=== PATIENT | male | born 1975 | race Caucasian/White ===

== ENCOUNTER 2018-01-23 10:50 | Inpatient (IN) ==
[2018-01-23] MEDS ORDERED: Aluminum/Magnesium/Simethacone Susp 30 ML UDC PO PRN (15:19)
[2018-01-23] MEDS: Senna/Docusate Sodium 8.6/50 MG Tablet PO SCH (20:35)
[2018-01-24 08:52] LABS: Carbon Dioxide 30.9 meq/L (21.0-32.0); Potassium 4.3 meq/L (3.5-5.1)
[2018-01-24 08:57] LABS: Chol/HDL Ratio 2.34 Ratio; HDL Cholesterol 62.2 mg/dL (40.0-60.0)
[2018-01-24] MEDS: Senna/Docusate Sodium 8.6/50 MG Tablet PO SCH (09:11)
[2018-01-24] MEDS: Acetaminophen 325 MG Tablet PO PRN (12:05)
[2018-01-24] MEDS ORDERED: Senna/Docusate Sodium 8.6/50 MG Tablet PO PRN (15:05)
[2018-01-24] MEDS: ARIPiprazole 10 MG Tablet PO SCH (16:23)
[2018-01-24 16:40] LABS: Hemoglobin A1c 5.4 % (4.3-6.0)
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
[2018-01-24] MEDS: Prazosin HCl 1 MG Capsule PO SCH (20:49)
[2018-01-25] MEDS: ARIPiprazole 10 MG Tablet PO SCH (09:22)
[2018-01-25] MEDS: Prazosin HCl 1 MG Capsule PO SCH (20:23)
--- NOTE | 2018-01-25 20:49 | P.PNPSY ---
Subjective Remarks: Patient seen for follow-up, chart reviewed. Discussion with nursing staff reported that patient slept well, no behavioral disturbances. Patient was found om day room, seen with nurse, stating that he is feeling less depressed, feeling glad being back on his medications. He reports having slept well last night, improved appetite and wanting to return back to [place] where he has more social support. Review of Systems All other systems reviewed negative except as stated in HPI Mental Status Examination Appearance: Disheveled Consciousness: Alert Orientation: Person, Place, Date/Time Motor Activity: Normal gait Speech: Unremarkable Language: Adequate Fund of Knowledge: Inadequate Attention and Concentration: Adequate Memory: Unremarkable Mood: Sad Affect: Sad Thought Process & Associations: Intact, Linear Thought Content: Appropriate Hallucination Type: None Delusion Type: None Suicidal Ideation: No Suicidal Plan: No Suicidal Intention: No Homicidal Ideation: No Homicidal Plan: No Homicidal Intention: No Insight: Fair Judgment: Impulsive Assessment and Plan - Assessment (1) Adjustment disorder with depressed mood Code(s): F43.21 - Adjustment disorder with depressed mood Status: Acute (2) Cocaine use Code(s): F14.90 - Cocaine use, unspecified, uncomplicated Status: Acute - Plan Plan: Patient noted wtih improvement in mood, denying any SI, tolerating treatment well. Continue current treatment, continue to monitor mood and behavior. Discharge planning in progress. Justification for Continued Inpatient Stay: At risk for further decompensation at lower level of care.
[2018-01-26] MEDS: ARIPiprazole 10 MG Tablet PO SCH (08:59)
--- NOTE | 2018-01-26 17:56 | P.PNPSY ---
Subjective Remarks: Patient seen for follow-up, chart reviewed. Discussion with nursing staff reported that patient cooperative, compliant and attending groups Patient was found lying on hospital bed, noted to be calm and cooperative. Patient states that he is now reconsidering staying in [place], engage in outatpient program, and get back to work. He reports feeling less depressed, denies any SI or HI. Review of Systems All other systems reviewed negative except as stated in HPI Mental Status Examination Appearance: Appropriate Consciousness: Alert Orientation: Person, Place, Date/Time Motor Activity: Normal gait Speech: Unremarkable Language: Adequate Fund of Knowledge: Inadequate Attention and Concentration: Adequate Memory: Unremarkable Mood: Appropriate Affect: Appropriate Thought Process & Associations: Intact, Linear Thought Content: Appropriate Hallucination Type: None Delusion Type: None Suicidal Ideation: No Suicidal Plan: No Suicidal Intention: No Homicidal Ideation: No Homicidal Plan: No Homicidal Intention: No Insight: Fair Judgment: Impulsive Assessment and Plan - Assessment (1) Adjustment disorder with depressed mood Code(s): F43.21 - Adjustment disorder with depressed mood Status: Acute (2) Cocaine use Code(s): F14.90 - Cocaine use, unspecified, uncomplicated Status: Acute - Plan Plan: Patient with continued improvement in mood, continue current treatment, continue to monitor mood and behavior. Discharge planning in progress. Justification for Continued Inpatient Stay: At risk for further decompensation at lower level of care.
[2018-01-26] MEDS: Prazosin HCl 1 MG Capsule PO SCH (20:24)
[2018-01-27] MEDS: ARIPiprazole 10 MG Tablet PO SCH (08:33)
[2018-01-27 15:13] LABS: Bilirubin,Urine Negative (Negative); Clarity,Urine Clear (Clear); Color,Urine Yellow (Yellw/Straw); Glucose,Urine (UA) Negative (Negative); Leukocyte Esterase,Urine Negative (Negative); Mucus,Urine Few /lpf (Occasional); Nitrite,Urine Negative (Negative); Specific Gravity,Urine 1.009 (1.002-1.035)
--- NOTE | 2018-01-27 18:47 | P.PNPSY ---
Subjective Remarks: Reviewed electronic medical records and discussed case with staff. Follow-up was conducted in the hallway with the MOISE Allen present. His nurse had contacted me earlier while was on another acting out stating that if he was not seen immediately for a medical consult he would "get louder". At that time I did order UA due to his complaints of right flank pain. That analysis came back showing a moderate amount of blood in the urine so a consult with the hospitalist has been ordered to rule out kidney stones. He also during the follow-up stated that he had had a recent approximately 100 pound weight loss over a year period. I advised him to inform the hospitalist of this as well. As far as his mood he states he is "more sad than anything". He does report that his appetite has been okay and states that the weight loss is unexplainable. He makes this statement, "all my life and I have found that I have had to raise my voice to be heard and get what I want". This would be indicative to this provider of some personality disorder issues. Mental Status Examination Appearance: Appropriate Consciousness: Alert Orientation: Person, Place, Date/Time Motor Activity: Normal gait Speech: Unremarkable Language: Adequate Fund of Knowledge: Inadequate Attention and Concentration: Adequate Memory: Unremarkable Mood: Appropriate Affect: Appropriate Thought Process & Associations: Intact, Linear Thought Content: Appropriate Hallucination Type: None Delusion Type: None Suicidal Ideation: No Suicidal Plan: No Suicidal Intention: No Homicidal Ideation: No Homicidal Plan: No Homicidal Intention: No Insight: Fair Judgment: Impulsive Assessment and Plan - Assessment (1) Adjustment disorder with depressed mood Code(s): F43.21 - Adjustment disorder with depressed mood Status: Acute - Plan Plan: Patient will be reevaluated Monday by the attending psychiatrist. Continue with current treatment plan. Justification for Continued Inpatient Stay: Moving this patient to a less restrictive environment would likely result in decompensation.
[2018-01-27] MEDS: Acetaminophen 325 MG Tablet PO PRN (20:03)
[2018-01-27] MEDS: Prazosin HCl 1 MG Capsule PO SCH (20:03)
[2018-01-28] MEDS: ARIPiprazole 10 MG Tablet PO SCH (09:05)
[2018-01-28 09:40] LABS: Baso # (Auto) 0.1 th/mm3 (0.0-0.2); Baso % (Auto) 0.8 % (0.0-2.0); Eos % (Auto) 0.5 % (0.0-4.0); Hematocrit 44.6 % (39.0-51.0); Hemoglobin 14.9 gm/dL (13.0-17.0); Lymph # (Auto) 1.4 th/mm3 (1.0-4.8); Lymph % (Auto) 21.4 % (9.0-44.0); Mean Corpuscular HGB Conc 33.5 % (32.0-36.0); Mean Corpuscular Hemoglobin 28.8 pg (27.0-34.0); Mean Corpuscular Volume 85.9 fL (80.0-100.0); Mean Platelet Volume 8.2 fL (7.0-11.0); Mono # (Auto) 0.6 th/mm3 (0.0-0.9); Mono % (Auto) 8.3 % (0.0-8.0); Neut # (Auto) 4.6 th/mm3 (1.8-7.7); Platelet Count 188 th/mm3 (150-450); Red Blood Count 5.19 mil/mm3 (4.50-5.90); Red Cell Distribution Width 14.1 % (11.6-17.2); White Blood Count 6.6 th/mm3 (4.0-11.0)
[2018-01-28 10:00] LABS: Calcium 8.6 mg/dL (8.5-10.1); Carbon Dioxide 31.8 meq/L (21.0-32.0); Potassium 4.6 meq/L (3.5-5.1)
--- NOTE | 2018-01-28 11:19 | US ---
EXAM DATE: 01/28/2018 12:00 AM EDT AGE/SEX: 42 years / Male INDICATIONS: Hematuria. CLINICAL DATA: This is the patient's initial encounter. Patient reports that signs and symptoms have been present for 1 day and indicates a pain score of 3/10. MEDICAL/SURGICAL HISTORY: . Hematuria. None. COMPARISON: No prior exams available for comparison. MEASUREMENTS: Right Kidney:__11.4 x 5.7 x 5.9 cm Left Kidney:__11.6 x 4.7 x 6.3 cm FINDINGS: Right Kidney: Normal echotexture and cortical thickness. No mass or hydronephrosis. Left Kidney: Normal echotexture and cortical thickness. No mass or hydronephrosis. Bladder: Within normal limits given the degree of distension. Other: None. CONCLUSION: 1. No evidence of concerning renal mass. No visible stones. Electronically signed by: Mariana Levy MD 01/28/2018 11:18 AM EDT
[2018-01-28] MEDS: Acetaminophen 325 MG Tablet PO PRN (12:50)
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
[2018-01-28] MEDS ORDERED: Ibuprofen 400 MG Tablet PO PRN (16:13)
[2018-01-28] MEDS ORDERED: Pantoprazole Sodium 20 MG DR Tablet PO SCH (16:15)
--- NOTE | 2018-01-28 16:37 | P.PNPSY ---
Subjective Remarks: Reviewed electronic medical records and discussed case with staff. Follow-up was conducted in the day room. Patient states that he has flank pain. He endorses unprotected sex prior to admission. He states that he has a discharge. Will request a urine culture and urine for chlamydia. Patient completed an ROR yesterday, but rescinded the ROR today. He endorses no racing thoughts or mood swings. He is antisocial and is manipulative in the mileu. He is sleeping and eating well. Review of Systems All other systems reviewed negative except as stated in HPI Mental Status Examination Appearance: Appropriate Consciousness: Alert Orientation: Person, Place, Date/Time Motor Activity: Normal gait Speech: Unremarkable Language: Adequate Fund of Knowledge: Inadequate Attention and Concentration: Adequate Memory: Unremarkable Mood: Appropriate Affect: Appropriate Thought Process & Associations: Intact, Linear Thought Content: Appropriate Hallucination Type: None Delusion Type: None Suicidal Ideation: No Suicidal Plan: No Suicidal Intention: No Homicidal Ideation: No Homicidal Plan: No Homicidal Intention: No Insight: Fair Judgment: Impulsive Assessment and Plan - Assessment (1) Adjustment disorder with depressed mood Code(s): F43.21 - Adjustment disorder with depressed mood Status: Acute - Plan Plan: Patient will be reevaluated Monday by the attending psychiatrist. Continue with current treatment plan. Justification for Continued Inpatient Stay: Moving patient to a less restrictive environment may result in his decompensation.
[2018-01-28] MEDS: Prazosin HCl 1 MG Capsule PO SCH (19:59)
[2018-01-28 22:02] LABS: Albumin 3.8 g/dL (3.4-5.0)
[2018-01-28 22:03] LABS: Total Protein 7.7 g/dL (6.4-8.2)
[2018-01-29 06:16] VITALS: BP 140/80; PULSE 73; RESP 17; TEMP 97.8; O2SAT 96
[2018-01-29] MEDS: ARIPiprazole 10 MG Tablet PO SCH (08:56)
[2018-01-29 09:59] LABS: Anion Gap 6 meq/L (5-15); Blood Urea Nitrogen 13 mg/dL (7-18); Calcium 8.7 mg/dL (8.5-10.1); Carbon Dioxide 28.4 meq/L (21.0-32.0); Chloride 105 meq/L (98-107); Glomerular Filtration Rate Greater Than 89 mL/min (>89); Glucose,Random 70 mg/dL (74-106); Potassium 4.3 meq/L (3.5-5.1); Sodium 139 meq/L (136-145)
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
== END 2018-01-29 18:29 | disposition home or self-care (01) ==
LOC: H270 13:22
PROVIDERS: ADMIT Student in an Organized Health Care Education/Training Program; ATTEND Student in an Organized Health Care Education/Training Program